=== PATIENT | female | born 1985 | race Two or more races ===

== ENCOUNTER 2020-08-03 20:30 | Emergency (ER) | payer MEDICAID ==
[~2020-08-03] VITALS: Ht 177.8 cm; Wt 105.0 kg
[2020-08-03 23:05] LABS: BASOPHILS % 1.1 % (0.0-2.0); EOSINOPHILS % 1.6 % (0.0-5.0); HEMATOCRIT. 40.8 % (36.0-48.0); HEMOGLOBIN. 13.9 g/dL (12.0-16.0); LYMPHOCYTES % 40.5 % (20.0-50.0); MEAN CORPUSCULAR HEMOGLOBIN 28.3 pg (28.0-32.0); MEAN CORPUSCULAR VOLUME 83.4 fL (81.0-99.0); MEAN PLATELET VOLUME 9.3 fl (7.4-10.4); MONOCYTES % 8.1 % (2.0-8.0); NEUTROPHILS % 48.7 % (40.0-76.0); PLATELET 244 x1000/uL (130-400); RED CELL DISTRIBUTION WIDTH 14.5 % (11.6-14.6)
[2020-08-03 23:12] LABS: CHLORIDE 107 mEq/L (98-107)
[2020-08-03 23:22] LABS: B-HCG QUANTITATIVE < 1 mIU/mL (<3)
[2020-08-03] MEDS ORDERED: KETOROLAC 30MG/ML VIAL IV STA (23:29)
[2020-08-04 00:17] LABS: CLARITY URINE CLEAR (CLEAR); COLOR URINE YELLOW (YELLOW); KETONES URINE TRACE (NEGATIVE); LEUKOCYTE ESTERASE URINE NEGATIVE (NEGATIVE); NITRITE URINE NEGATIVE (NEGATIVE); OCCULT BLOOD URINE NEGATIVE (NEGATIVE); PROTEIN URINE NEGATIVE (NEGATIVE); SPECIFIC GRAVITY URINE 1.029 (1.005-1.030)
[2020-08-04] MEDS ORDERED: CEPH500T MT (02:38)
[2020-08-04] MEDS ORDERED: IBUP-2030 MT (02:38)
[2020-08-04] MEDS ORDERED: TRAM50TA MT (02:38)
[2020-08-04 02:44] VITALS: BP 131/65
[2020-08-06 04:11] LABS: NEISSERIA GONORRHOEAE NAA Negative (Negative)
== END 2020-08-04 02:46 | disposition home or self-care (01) ==
LOC: ER 20:30
DX: T83.89XA Other specified complication of genitourinary prosthetic devices, implants and grafts, initial encounter (principal); Y83.8 Other surgical procedures as the cause of abnormal reaction of the patient, or of later complication, without mention of misadventure at the time of the procedure; Y92.018 Other place in single-family (private) house as the place of occurrence of the external cause
CPT/HCPCS: 36415; 76830; 76856; 80053; 81003; 81025; 84702; 85025; 86850; 86900; 86901; 87210; 87491; 87591; 93005; 96374; 99285; J1885